=== PATIENT | female | born 1990 | race Caucasian/White ===

== ENCOUNTER 2017-01-25 02:36 | Emergency (ER) ==
--- NOTE | 2017-01-25 03:35 | PROVIDER DOCUMENTATION ---
HPI-Musculoskeletal Pain/Inj - GENERAL Chief Complaint: Back Injury Stated Complaint: BACK PAIN Time Seen by Provider: 01/25/17 02:58 Source: patient - HX OF PRESENT ILLNESS-MUSKULOSKELTAL Quality of Pain: reports: aching Severity in ED: moderate Onset/Duration: 2 days ago Timing: still present Modifying Factors: improves with: analgesics, immobilization. worse with: movement Any recent injury?: Yes Locality of Occurance: Home Similar Symptoms Previously?: No Recently seen or treated by another doctor?: No - FALL INJURY Location of Pain/Injury: reports: back Pain Radiation: reports: legs (upper) (on the right). denies: legs (lower) - BACK & NECK PAIN/INJURY Back/Neck Pain Location: reports: lumbar spine Back/Neck Pain Radiation: reports: Upper Legs Context / Method of Injury: reports: lifting Associated Symptoms: reports: denies symptoms History of Chronic Neck or Back Pain?: Yes Review of Systems - Adult - REVIEW OF SYSTEMS - ADULT Constitutional: reports: no symptoms reported Eyes: reports: no symptoms reported Ears, Nose, Mouth & Throat: reports: no symptoms reported Cardiovascular: reports: no symptoms reported Respiratory: reports: no symptoms reported Gastrointestinal: reports: no symptoms reported Genitourinary: reports: no symptoms reported Musculoskeletal: reports: back pain Integumentary: reports: no symptoms reported Neurological: reports: paresthesia Endocrine: reports: no symptoms reported Hematologic/Lymphatic: reports: no symptoms reported Allergic/Immunologic: reports: no symptoms reported Past History - Adult - PAST MEDICAL HISTORY-ADULT Review of Records: reports: Nursing Assessment Review, Medications Reviewed, Social history reviewed & non-contributory. Major Childhood Illnesses: reports: denies history Cardiovascular: reports: denies history Respiratory: reports: denies history Gastrointestinal: reports: denies history Obstetrical/Gynecological: reports: endometriosis, ovarian cysts Genitourinary: reports: chronic UTI's Musculoskeletal: reports: denies history Neurological: reports: headaches/migraines Endocrine/Immune: reports: denies history Other Conditions: reports: denies history - PRIOR SURGERIES/PROCEDURES Surgical/Procedure History: reports: cholecystectomy, BTL, other (craniotomy for arachnoid cyst) - IMMUNIZATION STATUS Childhood Immunizations: See Nurse Assessment Flu Vaccine: See Nurse Assessment - FAMILY HISTORY Family History: reviewed, not pertinent Physical Exam-Injury Related - Physical Exam-Injury Related Initial Vital Signs Reviewed: Yes General Appearance: appears well, alert, no apparent distress Eyes: PERRL/EOMI Head, Ears, Nose, Mouth & Throat: normocephalic/atraumatic Neck: supple Respiratory: lungs clear, no respiratory distress Cardiovascular: regular rate, rhythm Abdominal Exam: normal bowel sounds Lymphatic: no adenopathy Back Exam: normal inspection, decreased range of motion Extremity: normal range of motion DTR: knee (R): 3+, knee (L): 3+, ankle (R): 3+, ankle (L): 3+ Integumentary: normal color Neurologic: grossly normal Psych/Mental Status: normal mood/affect Departure - Departure Time of Disposition Order: 03:40 DIAGNOSIS: Low back pain at multiple sites Disposition: HOME 01 Certified Medical Emergency: Emergent Condition: Stable Additional Instructions: ED Follow Up Instructions: You have been treated by a care provider in the Emergency Department. These instructions are being provided to you so you can have an understanding of how to care for yourself upon discharge. Upon discharge from the Emergency Department, you are responsible for making arrangements for follow-up care by a physician of your choice. Take all prescribed medications as directed. Return to the Emergency Department immediately for any new or worsening symptoms. You may call the Physician Referral phone number at [phone] to obtain a list of Physicians who are taking new patients.
[2017-01-25] MEDS ORDERED: DEPO-MEDROL IM ONE (03:38)
[2017-01-25] MEDS ORDERED: CELEBREX PO ONE (03:39)
[2017-01-25] MEDS ORDERED: CELEBREX ONE (03:47)
[2017-01-25 03:54] VITALS: BP 129/84
== END 2017-01-25 04:06 | disposition home or self-care (01) ==
LOC: P.ED 02:36
DX: M54.5 Low back pain (principal); M79.651 Pain in right thigh; Z87.42 Personal history of other diseases of the female genital tract; Z87.440 Personal history of urinary (tract) infections
CPT/HCPCS: 96372; J1030